=== PATIENT | female | born 1990 | race Two or more races ===

== ENCOUNTER 2025-09-26 22:17 | Emergency (ER) | payer MEDICAID ==
[~2025-09-26] VITALS: Ht 165.1 cm; Wt 75.0 kg
[2025-09-26 22:26] VITALS: O2SAT 100
[2025-09-26 23:33] LABS: BASOPHILS % 0.5 % (0.0-2.0); EOSINOPHILS % 2.2 % (0.0-5.0); HEMATOCRIT. 36.4 % (36.0-48.0); HEMOGLOBIN. 11.8 g/dL (12.0-16.0); LYMPHOCYTES % 17.6 % (20.0-50.0); MEAN PLATELET VOLUME 9.9 fl (7.4-10.4); MONOCYTES % 6.0 % (2.0-8.0); NEUTROPHILS % 73.7 % (40.0-76.0); PLATELET 282 x1000/uL (130-400); RED BLOOD CELL COUNT 4.60 mill/uL (4.2-5.4); RED CELL DISTRIBUTION WIDTH 14.7 % (11.6-14.6)
[2025-09-26 23:46] LABS: CREATININE 0.7 mg/dL (0.6-1.0); UREA NITROGEN BLOOD 6 mg/dL (9-23)
[2025-09-27] MEDS: METOCLOPRAMIDE HCL 10MG TABLET PO ONE
[2025-09-27] MEDS: DIPHENHYDRAMINE 25MG CAPSULE PO ONE
[2025-09-27] MEDS: KETOROLAC 30MG/ML VIAL IM ONE
[2025-09-27] MEDS ORDERED: IBUP-1455 MT (02:23)
[2025-09-27 02:41] VITALS: BP 118/74; PULSE 65; RESP 16; TEMP 37; O2SAT 99
[2025-09-27 04:24] LABS: CLARITY URINE CLEAR (CLEAR); COLOR URINE YELLOW (YELLOW); GLUCOSE URINE NEGATIVE (NEGATIVE); KETONES URINE NEGATIVE (NEGATIVE); LEUKOCYTE ESTERASE URINE NEGATIVE (NEGATIVE); NITRITE URINE NEGATIVE (NEGATIVE); OCCULT BLOOD URINE NEGATIVE (NEGATIVE); PH URINE 6.5 (4.5-8.0); PROTEIN URINE NEGATIVE (NEGATIVE); SPECIFIC GRAVITY URINE 1.016 (1.005-1.030); UROBILINOGEN URINE 0.2 E.U./dL (0.2-1.0)
== END 2025-09-27 02:42 | disposition home or self-care (01) ==
LOC: ER 22:33
DX: R51.9 Headache, unspecified (principal); R07.9 Chest pain, unspecified
CPT/HCPCS: 99285; 70450; 80048; 81003; 81025; 85025; 36415; 93005; 96372; J1885; Q0163; J8597